=== PATIENT | male | born 1955 | race American Indian/Alaskan Native ===

== ENCOUNTER 2017-07-26 01:32 | Emergency (ER) | payer SELFPAY ==
--- NOTE | 2017-07-26 07:22 | Emergency Department Report ---
<SANJEEV NASH - Last Filed: 07/26/17 17:46> ED Headache HPI - General Chief Complaint: Headache Stated Complaint: HEADACHE Time Seen by Provider: 07/26/17 07:21 - History of Present Illness Initial Comments: 62-year-old male past medical history none presents with complaint of 2 days of sharp frontal throbbing headache. Patient states he was asleep 2 days ago and woke up with severe headache. States he has not had headaches like this before. Denies photophobia or phonophobia fever chills nausea or vomiting. Patient denies chest pain palpitations shortness of breath up or lower extremity paresthesias. Denies any increased headache with neck movement denies earache or sore throat or nasal congestion. Patient is awake alert and oriented 3 and nontoxic appearing fully lucid and cooperative. Patient states that headache is currently 9 out of 10. States he had blurry vision 1 headache first started and it peaked within first few hours after he first noticed it. Timing/Duration: 24 hours Quality: severe Head Injury Location: frontal Recent Head Trauma: no recent headache/trauma Allergies/Adverse Reactions: Allergies No Known Allergies Allergy (Verified 07/26/17 10:12) ED Review of Systems ROS: Stated complaint: HEADACHE Other details as noted in HPI Constitutional: denies: chills, fever Eyes: denies: eye pain, eye discharge, vision change ENT: denies: ear pain, throat pain Respiratory: denies: cough, shortness of breath, wheezing Cardiovascular: denies: chest pain, palpitations Endocrine: no symptoms reported Gastrointestinal: denies: abdominal pain, nausea, diarrhea Genitourinary: denies: urgency, dysuria Musculoskeletal: denies: back pain, joint swelling, arthralgia Skin: denies: rash, lesions Neurological: headache. denies: weakness, paresthesias Psychiatric: denies: anxiety, depression Hematological/Lymphatic: denies: easy bleeding, easy bruising ED Past Medical Hx - Past Medical History Previous Medical History?: No - Surgical History Past Surgical History?: No - Social History Smoking Status: Never Smoker Substance Use Type: Alcohol ED Physical Exam - General Limitations: No Limitations General appearance: alert, in no apparent distress - Head Head exam: Present: atraumatic, normocephalic - Eye Eye exam: Present: normal appearance, PERRL, EOMI - ENT ENT exam: Present: mucous membranes moist - Neck Neck exam: Present: normal inspection, full ROM - Respiratory Respiratory exam: Present: normal lung sounds bilaterally. Absent: respiratory distress - Cardiovascular Cardiovascular Exam: Present: regular rate, normal rhythm. Absent: systolic murmur, diastolic murmur, rubs, gallop - GI/Abdominal GI/Abdominal exam: Present: soft, normal bowel sounds - Rectal Rectal exam: Present: deferred - Extremities Exam Extremities exam: Present: normal inspection - Back Exam Back exam: Present: normal inspection - Neurological Exam Neurological exam: Present: alert, oriented X3, CN II-XII intact, normal gait - Expanded Neurological Exam Expanded Patient oriented to: Present: person, place Cranial nerves: EOM's Intact: Normal Cerebellar function: Finger to Nose: Normal, Heel to Graham: Normal, Romberg: Normal Sensory exam: Upper Extremity Light Touch: Normal, Lower Extremity Light Touch: Normal Motor strength exam: RUE: 5, LUE: 5, RLE: 5, LLE: 5 Best Eye Response ([place]): (4) open spontaneously Best Motor Response ([place]): (6) obeys commands Best Verbal Response ([place]): (5) oriented [place] Total: 15 - Psychiatric Psychiatric exam: Present: normal affect, normal mood - Skin Skin exam: Present: warm, dry, intact, normal color. Absent: rash ED Course Vital Signs 07/26/17 07/26/17 01:44 10:19 Temperature 98.8 F 98.4 F Pulse Rate 93 H 76 Respiratory 18 17 Rate Blood Pressure 143/86 Blood Pressure 123/80 [Left] O2 Sat by Pulse 98 97 Oximetry ED Medical Decision Making - Lab Data Result diagrams: 07/26/17 08:23 07/26/17 10:05 - Medical Decision Making A/P: Headache, rule out subarachnoid hemorrhage 1-I discussed with patient that I am clinically concerned that he has severe headache which was sudden onset which is concerning for subarachnoid hemorrhage. I discussed with patient that while CTs and CTAs of head and neck are helpful diagnosis ultimately he needs a lumbar puncture in order to truly assess for presence of subarachnoid hemorrhage. Patient stated he understood my concern but is refusing to allow me to perform lumbar puncture at this time. I advised patient that he is at risk of permanent disability and if he is not managed and treated for this issue if he does have it. Patient stated he understood this but is adamant he does not want a lumbar puncture at this time. Conversation witnessed by a nurse at bedside. Patient signed out AGAINST MEDICAL ADVICE 2-patient referred to neurology and primary care 3-CT noncontrast head unremarkable, CTA head and neck unremarkable 4-initial BMP hemolyzed, potassium falsely elevated recheck shows normal potassium. 5- EKG shows left-sided fascicular block will also refer patient to cardiology. Patient has no chest pain shortness of breath palpitations nausea or complaints of episodes of diaphoresis. Critical care attestation.: If time is entered above; I have spent that time in minutes in the direct care of this critically ill patient, excluding procedure time. ED Disposition Clinical Impression: Left against medical advice Headache Qualifiers: Headache type: unspecified Headache chronicity pattern: acute headache Intractability: not intractable Qualified Code(s): R51 - Headache Disposition: DC-07 LEFT AGAINST MED ADVICE Is pt being admited?: No Does the pt Need Aspirin: No Condition: Undetermined Instructions: Acute Headache (ED), Against Medical Advice (ED) Referrals: [facility] [Outside] - 3-5 Days [facility] [Outside] - 3-5 Days DIPTI ABEL MD [Staff Physician] - [facility] Days KANNAN DOUGLASS MD [Staff Physician] - 3-5 Days Forms: AMA Form Time of Disposition: 11:41 <RHIANNON CRUMP - Last Filed: 07/28/17 14:42> ED Medical Decision Making - Lab Data Result diagrams: 07/26/17 08:23 07/26/17 10:05
[2017-07-26] MEDS ORDERED: NACL 0.9% 500 ML 500 ML IV ONE (08:10)
[2017-07-26] MEDS ORDERED: REGLAN IV ONE (08:10)
[2017-07-26] MEDS ORDERED: TYLENOL PO ONE (08:11)
--- NOTE | 2017-07-26 08:13 | Cat Scan Report ---
FINAL REPORT EXAM: CT HEAD/BRAIN WO CON HISTORY: frontal headache worsening x2 days TECHNIQUE: CT imaging acquired through the head without intravenous contrast. Transaxial reformations are provided. PRIORS: None. FINDINGS: The ventricles, cisterns and sulci are within normal limits. No intraparenchymal or extra-axial mass, hemorrhage, or mass effect. Mancuso and white-matter differentiation is within normal limits for patient age. Normal spherical shape of the globes. Left maxillary moderate mucosal thickening with fluid level, partially imaged. Otherwise no significant abnormality involving the imaged portions of the paranasal sinuses and mastoid air cells. No skull or facial fracture visualized. IMPRESSION: No acute intracranial abnormality. Left maxillary sinus disease with partially imaged fluid level.
[2017-07-26 08:42] LABS: Basophils % (Auto) 0.4 % (0.0-1.8); Eosinophils % (Auto) 1.9 % (0.0-4.3); Hematocrit 47.9 % (35.5-45.6); Hemoglobin 15.7 gm/dl (11.8-15.2); Mean Corpuscular HGB Conc 33 % (32-34); Mean Corpuscular Hemoglobin 32 pg (28-32); Mean Corpuscular Volume 96 fl (84-94); Platelet Count 130 K/mm3 (140-440); Red Blood Count 4.97 M/mm3 (3.65-5.03); Red Cell Distribution Width 13.5 % (13.2-15.2); White Blood Count 6.3 K/mm3 (4.5-11.0)
[2017-07-26 08:58] LABS: Anion Gap 20 mmol/L; Blood Urea Nitrogen 10 mg/dL (9-20); Calcium 8.8 mg/dL (8.4-10.2); Carbon Dioxide 25 mmol/L (22-30); Chloride 97.9 mmol/L (98-107); Glucose 97 mg/dL (75-100); Sodium 137 mmol/L (137-145)
[2017-07-26] MEDS ORDERED: KIONEX PO ONE (09:40)
[2017-07-26] MEDS ORDERED: NACL ONE (10:13)
[2017-07-26 10:20] VITALS: BP 123/80
--- NOTE | 2017-07-26 11:19 | Cat Scan Report ---
CTA HEAD: 07/26/17 10:04:00 CLINICAL: CVA. TECHNIQUE- Volumetric acquisition and 1.25 mm scan reconstructions after the uneventful intravenous injection of 100-cc Omnipaque 350. Consent was obtained prior to the administration of the IV contrast. Sagittal and reformats were obtained. Volume rendered images were generated and reviewed on a 3-D workstation. FINDINGS: Intact pitka's point of [place] with no aneurysm, stenosis or occlusion. Normal vertebral and basilar arteries. IMPRESSION: Normal study.
--- NOTE | 2017-07-26 11:22 | Cat Scan Report ---
CTA NECK : 07/26/17 01:32:00 CLINICAL: Worsening headache. TECHNIQUE: Volumetric acquisition and 1.25 mm scan reconstructionsafter the uneventful intravenous injection of 100-cc Omnipaque 350. Consent was obtained prior to the administration of the IV contrast. Coronal and sagittal reformats were performed. Postprocessing with volume rendering was performed on a 3-D workstation. FINDINGS: Patent bilateral CCA, ECA and ICA with no stenoses or occlusions. No aneurysm. Normal vertebral arteries with a dominant left vertebral artery. IMPRESSION: Normal study.
== END 2017-07-26 11:53 | disposition left against medical advice (07) ==
LOC: ED 01:32
DX: R51 Headache (principal)
CPT/HCPCS: 36415; 70450; 70496; 70498; 80048; 82550; 83735; 84132; 85025; 93005; 93010; 96361; 96374; 99284; J2765; J7040; Q9967